=== PATIENT | male | born 1970 | race Caucasian/White ===

== ENCOUNTER 2024-04-24 07:14 | Outpatient (CLI) | payer OTHER ==
[2024-04-24 08:18] LABS: PH,URINE 5.5 (5.0-8.0); URINE APPEARANCE Clear; URINE BILIRRUBIN Negative (NEGATIVE); URINE BLOOD Negative; URINE COLOR Yellow; URINE KETONE Negative (NEGATIVE); URINE LEUKOCYTE Negative; URINE NITRATE Negative; URINE PROTEIN Negative (NEGATIVE); URINE UROBILINOGEN 0.2 E.U./dl
[2024-04-24 08:22] LABS: URINE EPITHELIAL CELLS 2.9 uL (0.0-38.8); URINE RBC 2.9 uL (0.0-20.8); URINE WBC 8.9 uL (0.0-23.2)
[2024-04-24 08:28] LABS: URINE GLUCOSE >=1000 MG/DL (NEGATIVE)
[2024-04-24 08:58] LABS: HEMATOCRIT 44.4 % (39.0-48.0); HEMOGLOBIN 15.1 g/dL (13-16.00); MEAN CELL VOLUME 82.9 fL (80.0-100.00); MEAN CORPUSCULAR HEMOGLOBIN 28.1 pg (27.00-32.0); PLATELET COUNT 289 K/uL (150-450); RED BLOOD COUNT 5.35 M/uL (4.00-6.00); RED CELL DISTRIBUTION WIDTH 14.9 % (11.5-14.5)
[2024-04-24 09:18] LABS: INR 1.03; PARTIAL THROMBOPLASTIN TIME 30.2 SECONDS (22.0-34.0); PROTHROMBIN TIME 11.2 SECONDS (9.0-11.5)
[2024-04-24 09:49] LABS: CREATININE SERUM 0.99 mg/dL (0.70-1.30); GFR 79.38; POTASSIUM 4.94 mEq/L (3.5-5.1); PROSTATIC SPECIFIC ANTIGEN 0.966 NG/ML (0.010-4.00)
[2024-04-25 09:14] LABS: % FREE PSA 28.9 % (.); free psa 0.26 ng/mL; total psa 0.9 ng/mL (0.0-4.0)
== END 2024-04-24 07:26 | disposition home or self-care (01) ==
LOC: LAB 07:14
PROVIDERS: ATTEND Urology
DX: N40.1 Benign prostatic hyperplasia with lower urinary tract symptoms (principal); N47.1 Phimosis; N50.812 Left testicular pain; Z80.42 Family history of malignant neoplasm of prostate; Q55.69 Other congenital malformation of penis; N45.1 Epididymitis; I11.9 Hypertensive heart disease without heart failure; Z01.811 Encounter for preprocedural respiratory examination

== ENCOUNTER 2024-11-28 09:23 | Outpatient (CLI) | payer OTHER ==
[2024-11-28 09:58] LABS: PH,URINE 5.5 (5.0-8.0); URINE APPEARANCE Clear; URINE BILIRRUBIN Negative (NEGATIVE); URINE BLOOD Negative; URINE COLOR Yellow; URINE GLUCOSE Negative (NEGATIVE); URINE KETONE Negative (NEGATIVE); URINE LEUKOCYTE Negative; URINE NITRATE Negative; URINE PROTEIN Negative (NEGATIVE); URINE UROBILINOGEN 0.2 E.U./dl
[2024-11-28 10:02] LABS: URINE BACTERIA 7.3 uL (0.0-1933)
[2024-11-28 10:09] LABS: URINE EPITHELIAL CELLS 0.7 uL (0.0-38.8); URINE RBC 0.4 uL (0.0-20.8); URINE WBC 0.4 uL (0.0-23.2)
[2024-11-28 10:17] LABS: HEMATOCRIT 43.4 % (39.0-48.0); HEMOGLOBIN 14.7 g/dL (13-16.00); MEAN CELL VOLUME 85.7 fL (80.0-100.00); MEAN CORPUSCULAR HGB CONC 33.8 g/dl (32.0-36.0); PLATELET COUNT 256 K/uL (150-450); RED BLOOD COUNT 5.07 M/uL (4.00-6.00); RED CELL DISTRIBUTION WIDTH 14.7 % (11.5-14.5)
[2024-11-28 10:47] LABS: BILIRUBIN TOTAL 0.71 mg/dL (0.3-1.2); CALCIUM 9.6 mg/dL (8.5-10.1); CHOL HDL RATIO 2.5 (0-5.0); CREATININE SERUM 0.82 mg/dL (0.70-1.30); GFR 98.28; GLOBULINA 3.2 G/DL (2.4-3.5); POTASSIUM 4.95 mEq/L (3.5-5.1); TOTAL PROTEIN 7.2 gm/dL (6.4-8.2)
== END 2024-11-28 09:25 | disposition home or self-care (01) ==
LOC: LAB 09:23
PROVIDERS: ATTEND General Practice
DX: E11.9 Type 2 diabetes mellitus without complications (principal); E78.2 Mixed hyperlipidemia; R53.1 Weakness; I10 Essential (primary) hypertension

== ENCOUNTER 2025-07-17 08:53 | Outpatient (CLI) | payer OTHER ==
[2025-07-17 10:42] LABS: BASO % 0.5 % (0.1-1.2); EOS # 0.17 (0.04-0.54); EOS % 2.0 % (0.7-7.0); LYMPH # 1.89 (1.18-3.74); LYMPH % 22.0 % (19.3-53.1); MEAN PLATELET VOLUME 11.50 fl (9.4-12.4); MONO # 0.47 (0.24-0.82); MONO % 5.5 % (4.7-12.5); NEUT # 5.98 (1.56-6.13); NEUT % 69.7 % (34.0-71.1); RED CELL DISTRIBUTION WIDTH 12.7 % (11.6-14.4)
[2025-07-17 10:49] LABS: URINE APPEARANCE Clear; URINE BILIRRUBIN Negative (NEGATIVE); URINE BLOOD Negative; URINE COLOR Yellow; URINE KETONE Trace (NEGATIVE); URINE LEUKOCYTE Negative; URINE NITRATE Negative; URINE PROTEIN Negative (NEGATIVE); URINE UROBILINOGEN 0.2 E.U./dl
[2025-07-17 10:50] LABS: URINE BACTERIA 6.8 uL (0.0-1933)
[2025-07-17 11:07] LABS: URINE GLUCOSE >=1000 MG/DL (NEGATIVE)
[2025-07-17 11:08] LABS: URINE CAST 0.00 uL (0.0-1.40); URINE EPITHELIAL CELLS 1.1 uL (0.0-38.8); URINE RBC 1.1 uL (0.0-20.8); URINE WBC 1.7 uL (0.0-23.2)
[2025-07-17 11:12] LABS: INR 1.0
[2025-07-17 11:29] LABS: BUN CREA RATIO 19.0 (7.0-25.0); CREATININE SERUM 0.73 mg/dL (0.70-1.30); GFR 112.39; OSMOLALITY SERUM 290.0 MOSM/KG (275-295); PROSTATIC SPECIFIC ANTIGEN 0.616 NG/ML (0.010-4.00); TSH 1.35 uIU/mL (0.358-3.74)
[2025-07-17 11:30] LABS: GLUCOSE FASTING 282.0 mg/dL (65-100)
[2025-07-20 06:06] LABS: % FREE PSA 28.3 % (.); PROLACTIN 6.6 ng/mL (3.6-25.2)
== END 2025-07-17 08:59 | disposition home or self-care (01) ==
LOC: LAB 08:53
PROVIDERS: ATTEND Urology
DX: N40.1 Benign prostatic hyperplasia with lower urinary tract symptoms (principal); N47.1 Phimosis; N50.812 Left testicular pain; Q55.69 Other congenital malformation of penis; N95.1 Menopausal and female climacteric states